=== PATIENT | female | born 1955 | race Caucasian/White ===

== ENCOUNTER 2016-05-11 05:49 | Emergency (ER) | payer MEDICARE ==
[2016-05-11 06:06] VITALS: TEMP 97.4; BMI 36.1
--- NOTE | 2016-05-11 06:14 | EDPRACDOC ---
- General Information Chief Complaint: Shoulder Pain Stated Complaint: LT SHOULDER/ARM PAIN Time Seen by Provider: 05/11/16 05:56 Information Source: Patient Home Medications: Home Medications Gabapentin 800 mg PO TID 08/26/15 Atorvastatin Calcium 40 mg PO DAILY 02/17/16 Levothyroxine [Synthroid, Levoxyl] 200 mcg PO DAILY 02/17/16 Oxycodone HCl [Roxicodone] 5 mg PO QID 02/17/16 Diltiazem HCl [Diltiazem 24Hr ER] 180 mg PO DAILY 04/07/16 Hydrochlorothiazide 25 mg PO DAILY 04/07/16 Metoprolol Succinate (XL) [Toprol Xl] 50 mg PO DAILY 04/07/16 Theophylline Anhydrous [Ruben-24] 300 mg PO BID 04/07/16 HYDROmorphone [Dilaudid] 2 mg PO DAILY #3 tablet 04/08/16 Allergies/Adverse Reactions: Allergies Allergy/AdvReac Type Severity Reaction Status Date / Time aspirin Allergy Difficulty Verified 05/11/16 06:04 Breathing ibuprofen Allergy Difficulty Verified 05/11/16 06:04 Breathing morphine Allergy Difficulty Verified 05/11/16 06:04 Breathing NSAIDS (Non-Steroidal Allergy Difficulty Verified 05/11/16 06:04 Anti-Inflamma Breathing tramadol HCl [From Ultra] Allergy Difficulty Verified 05/11/16 06:04 Breathing - History of Present Illness Onset: chronic HPI: PT WITH LEFT SHOULDER PAIN, LEFT PAIN MEDS OUT OF TOWN. PAIN SEVERE. WOULD LIKE A SHOT OF DILAUDID. NO OTHER COMPLAINTS. ED Past Medical History - History Reviewed Yes Nurses notes reviewed and agree except as marked - Patient Medical History Cardiac History: Reports: Hypertension Respiratory History: Reports: Asthma Psychological History: Reports: Depression - Social Medical History Smoking Status: Never smoker EDM Review of Systems - Review of Systems ROS Negative Except as Marked: Yes All systems reviewed and were negative except as marked Respiratory: No Symptoms Reported Cardiovascular: No Symptoms Reported Gastrointestinal: No Symptoms Reported Genitourinary: No Symptoms Reported Neurological: No Symptoms Reported - Physical Exam Constitutional: Alert (Awake) Oriented to: Time, Person, Place Last recorded Vital Signs: Last Vital Signs Temp 97.4 F L 05/11/16 05:57 Pulse 108 05/11/16 05:57 Resp 18 05/11/16 05:57 BP 144/77 05/11/16 05:57 Pulse Ox 96 05/11/16 05:57 Oxygen Pulse Oxygen Saturation 96 O2 Device Room Air Oxygen Flow Rate Fraction of Inspired Oxygen ( FIO2) - HEENT Head: Normal ( normocephalic) Eye Exam: Normal (PERRL, EOMI, Sclera white) Oropharynx: Normal (Pharynx:Moist without exudate,Gums-no swelling) Tympanic Membrane: Other (PT IS DEAF.) Nose: No Symptoms Reported (septum midline) Neck: Normal (FROM, trachea at midline) - Respiratory/Cardiovascular Respiratory: Normal - CTA (BBS clear to auscultation without adventitious sounds ) Cardiovascular: Normal (RRR without murmur, gallop or rub) - GI Auscultation: Normal (NABS) Palpation: Normal (Soft,No rebound or guarding, non distended) Tenderness: Non tender Quiles's Sign: Negative - Musculoskeletal Back: Normal (Non-Tender) - Integumentary Skin: Normal, Warm, Dry Lymphatics: Normal (no adenopathy) - Neurologic Memory Impaired: Normal Motor Function: Normal (Normal tone, Pulses 2+ No cyanosis or edema, FROM) Cranial Nerve: Normal (CN II-X11 intact sensation, strength 5/5) Cerebellar: Normal Mood Description: Normal Perception: Normal ED Shoulder Problem Exam - Musculoskeletal Clavicle: Normal Shoulder: Tender (PAIN WITH ROM. TTP PROXIMAL SHOULDER.). negative: Swelling, Deformity Decision Time to Discharge: 06:16 - Departure Yes I personally saw and evaluated the patient. Disposition: Home Condition: Stable Final Diagnosis: Left shoulder pain Qualifiers: Chronicity: chronic Qualified Code(s): M25.512 - Pain in left shoulder; G89.29 - Other chronic pain Instructions: RICE: Routine Care for Injuries Education/Counseling Given To: Patient Education/Counseling Given Regarding: Diagnosis Referrals: None,No Provider [Primary Care Provider] - One Week
[2016-05-11] MEDS ORDERED: HYDROmorphone 1 MG INJECTION IM ONE (06:16)
[2016-05-11 06:46] VITALS: BP 130/76; PULSE 94
== END 2016-05-11 06:46 | disposition home or self-care (01) ==
LOC: ED 05:49
DX: M25.512 Pain in left shoulder (principal); G89.29 Other chronic pain; I10 Essential (primary) hypertension; J45.909 Unspecified asthma, uncomplicated; F32.9 Major depressive disorder, single episode, unspecified; Z79.899 Other long term (current) drug therapy
CPT/HCPCS: 96372; 99284; J1170

== ENCOUNTER 2016-05-18 19:46 | Emergency (ER) | payer MEDICARE ==
[2016-05-18 21:10] VITALS: BP 159/83; PULSE 84; TEMP 97.6; BMI 35.3
--- NOTE | 2016-05-18 21:13 | EDPRACDOC ---
- General Information Stated Complaint: CP LT SIDED INTO SHOULDER & ARM LOWER BACK PAIN Time Seen by Provider: 05/18/16 21:08 Home Medications: Home Medications Gabapentin 800 mg PO TID 08/26/15 Atorvastatin Calcium 40 mg PO DAILY 02/17/16 Levothyroxine [Synthroid, Levoxyl] 200 mcg PO DAILY 02/17/16 Oxycodone HCl [Roxicodone] 5 mg PO QID 02/17/16 Diltiazem HCl [Diltiazem 24Hr ER] 180 mg PO DAILY 04/07/16 Hydrochlorothiazide 25 mg PO DAILY 04/07/16 Metoprolol Succinate (XL) [Toprol Xl] 50 mg PO DAILY 04/07/16 Theophylline Anhydrous [Ruben-24] 300 mg PO BID 04/07/16 HYDROmorphone [Dilaudid] 2 mg PO DAILY #3 tablet 04/08/16 Allergies/Adverse Reactions: Allergies Allergy/AdvReac Type Severity Reaction Status Date / Time aspirin Allergy Difficulty Verified 05/18/16 21:06 Breathing ibuprofen Allergy Difficulty Verified 05/18/16 21:06 Breathing morphine Allergy Difficulty Verified 05/18/16 21:06 Breathing NSAIDS (Non-Steroidal Allergy Difficulty Verified 05/18/16 21:06 Anti-Inflamma Breathing tramadol HCl [From Ultram] Allergy Difficulty Verified 05/18/16 21:06 Breathing - History of Present Illness HPI: PT PRESENTS TODAY REQUESTING DILAUDID INJECTIONS FOR HER MS AND SHOULDER PAIN. THIS IS THE 8TH VISIT FOR SAME IN LESS THAN A YEAR FOR THE SAME REASON. PT ALWAYS TELLS THE STAFF THAT SHE HAS LEFT HER MEDICATIONS AT HOME IN [place]. WHEN YOU REFUSE TO GIVE A DILAUDID INJECTION, PT WILL THEN ASK FOR THE MEDICATION ORALLY. PT HAS BOTH DILAUDID AND OXYCODONE ACTIVELY PRESCRIBED TO HER. Context: Reports: Left Medication Medication for: Reports: Pain Pain: Reports: Moderate ED Past Medical History - History Reviewed Yes Nurses notes reviewed and agree except as marked - Patient Medical History Cardiac History: Reports: Hypertension Respiratory History: Reports: Asthma Psychological History: Denies: Depression - Social Medical History Smoking Status: Never smoker EDM Review of Systems - Review of Systems ROS Negative Except as Marked: Yes All systems reviewed and were negative except as marked Constitutional: No Symptoms Reported Musculoskeletal: Shoulder - Physical Exam Constitutional: Alert (Awake), No apparent distress Oriented to: Time, Person, Place Last recorded Vital Signs: Oxygen Pulse Oxygen Saturation O2 Device Oxygen Flow Rate Fraction of Inspired Oxygen ( FIO2) - HEENT Head: Normal Eye Exam: Normal Neck: Normal, Denies Pain, Midline - Respiratory/Cardiovascular Respiratory: Normal - CTA Cardiovascular: Normal - GI Palpation: Normal Tenderness: Non tender - Musculoskeletal Back: Normal Extremities: Normal - Integumentary Skin: Normal Lymphatics: Normal - Neurologic Cerebellar: Normal Mood Description: Normal Thought: Coherent Perception: Normal - Additional Information PT VERY UPSET THAT I WILL NOT PROVIDE HER EITHER INJECTION OR ORAL PILLS. I EXPLAIN THAT THIS IS THE 8TH TIME IN THE PAST 9 MONTHS FOR THE SAME THING AND PT NEEDS TO BE RESPONSIBLE FOR HER OWN MEDICATIONS. IT IS NOT THE ED'S RESPONSIBILITY TO KEEP UP WITH HER MEDICATIONS. PT LEAVES W/OUT PAPERWORK. Decision Time to Discharge: 21:17 - Departure Disposition: Home Condition: Good Final Diagnosis: Drug-seeking behavior Instructions: Narcotic Pain Management (ED) Education/Counseling Given To: Patient Education/Counseling Given Regarding: Diagnosis, Treatment, Follow Up Referrals: None,No Provider [Primary Care Provider] - One Week
== END 2016-05-18 21:10 | disposition home or self-care (01) ==
LOC: EDMC 19:46
DX: R07.9 Chest pain, unspecified (principal); Z76.5 Malingerer [conscious simulation]
CPT/HCPCS: 99282